=== PATIENT | female | born 1955 | race Asian ===

== ENCOUNTER 2018-09-09 15:29 | Emergency (ER) | payer OTHER ==
[~2018-09-09] VITALS: Ht 167.6 cm; Wt 103.0 kg
[2018-09-09 16:39] LABS: POTASSIUM 3.9 mmol/L (3.6-5.2)
[2018-09-09 16:40] LABS: PLATELET COUNT 211 K/uL (152-353)
[2018-09-09 18:18] VITALS: BP 148/59; TEMP 98.3
[2018-09-09] MEDS ORDERED: SITA50TA2 PO (21:11)
[2018-09-09] MEDS ORDERED: COZAAR25 MG PO (21:12)
[2018-09-09] MEDS ORDERED: CARV3.12 PO (21:12)
[2018-09-09] MEDS ORDERED: FURO20TA67 PO (21:13)
[2018-09-09] MEDS ORDERED: LIPITOR10 MG PO (21:15)
[2018-09-09] MEDS ORDERED: GABA300C2 PO (21:16)
[2018-09-09] MEDS ORDERED: PANTOPRAZOLE 40MG TA PO (21:18)
[2018-09-09] MEDS ORDERED: PIOG30TA PO (21:19)
[2018-09-09] MEDS ORDERED: METFORMIN HYDR850 MG PO (21:20)
[2018-09-09] MEDS ORDERED: ALPR0.2566 PO (21:21)
[2018-09-09] MEDS ORDERED: ALPR0.5T24 PO (21:23)
[2018-09-09] MEDS ORDERED: VENL37.511 PO (21:24)
[2018-09-09] MEDS ORDERED: CEPHALEXIN500 MG PO (21:26)
[2018-09-09] MEDS ORDERED: GLIM4TAB PO (21:27)
[2018-09-09] MEDS ORDERED: CLARITIN10 MG PO (21:27)
[2018-09-09] MEDS ORDERED: SEROQUEL50 MG PO (21:29)
== END 2018-09-09 18:18 | disposition other institution (70) ==
LOC: ED 15:29
PROVIDERS: Family Medicine
DX: N39.0 Urinary tract infection, site not specified (principal); J18.9 Pneumonia, unspecified organism; R46.89 Other symptoms and signs involving appearance and behavior; Z04.6 Encounter for general psychiatric examination, requested by authority
CPT/HCPCS: 36415; 80053; 81000; 85027; 87086; 87088; 96372; 99285; J0696

== ENCOUNTER 2018-10-14 12:35 | Emergency (ER) | payer OTHER ==
[~2018-10-14] VITALS: Ht 167.6 cm; Wt 122.5 kg
[2018-10-14 12:35] VITALS: BP 160/75; TEMP 98.1
[~2018-10-14 12:35] MED LIST: ALPR0.2566 PO; ALPR0.5T24 PO; CARV3.12 PO; CEPHALEXIN500 MG PO; CHOL100034 PO; CLARITIN10 MG PO; CLON0.5T36 PO; COZAAR25 MG PO; DIVA250T PO; DIVALPROEX500 MG PO; FURO20TA67 PO; GABA300C2 PO; GLIM4TAB PO; LIPITOR10 MG PO; MAGN400T4 PO; METFORMIN HYDR850 MG PO; PANTOPRAZOLE 40MG TA PO; PIOG30TA PO; RISP0.25 PO; SEROQUEL50 MG PO; SITA50TA2 PO; VENL37.511 PO; VENLAFAXINE150 M1 PO
[2018-10-14] MEDS ORDERED: DIVA250T PO (14:58)
[2018-10-14 15:19] LABS: PLATELET COUNT 140 K/uL (152-353)
[2018-10-14 15:31] LABS: POTASSIUM 4.2 mmol/L (3.6-5.2)
== END 2018-10-14 16:30 | disposition other institution (70) ==
LOC: ED 12:37
PROVIDERS: Family Medicine
DX: F25.8 Other schizoaffective disorders (principal); Z79.899 Other long term (current) drug therapy; Z04.6 Encounter for general psychiatric examination, requested by authority
CPT/HCPCS: 80053; 81000; 85027; 87077; 87086; 87088; 87186; 93005; 99285